=== PATIENT | female | born 1970 | race Caucasian/White ===

== ENCOUNTER 2024-07-29 18:27 | Emergency (ER) | payer MEDICAID ==
[~2024-07-29] VITALS: Ht 167.6 cm; Wt 79.0 kg
[2024-07-29 18:39] VITALS: O2SAT 99
[2024-07-29] MEDS ORDERED: TRIMO LEFTEYE (19:03)
[2024-07-29 20:15] VITALS: BP 121/83; PULSE 99; RESP 20; TEMP 36.9; O2SAT 99
== END 2024-07-29 20:38 | disposition home or self-care (01) ==
LOC: ER 18:27
DX: H10.89 Other conjunctivitis (principal)
CPT/HCPCS: 99283